=== PATIENT | male | born 1990 | race Caucasian/White ===

== ENCOUNTER 2016-08-06 17:47 | Emergency (ER) | payer OTHER, BC ==
--- NOTE | 2016-08-06 18:28 | EDM.PDOC ---
ED HPI GENERAL MEDICAL PROBLEM - General Time Seen by Provider: 08/06/16 19:23 Source of Information: Reports: Patient - History of Present Illness INITIAL COMMENTS - FREE TEXT/NARRATIVE: 25 y.o.w.m. came to the ed after he injured his r foot at work at 2 am with limted ROM, pain at R midfoot, denies any other injuries or any other medical issues. Pt refused pain meds. Onset: Today Onset Date: 08/06/16 Onset Time: 06:00 Duration: Minutes: Location: Reports: Lower Extremity, Right Quality: Reports: Dull Severity: Mild Improves with: Reports: Immobilization Worsens with: Reports: Movement Context: Reports: Trauma (at work) Associated Symptoms: Reports: No Other Symptoms - Related Data Allergies Allergy/AdvReac Type Severity Reaction Status Date / Time bee venom protein (honey bee) Allergy Anaphylactic Verified 08/06/16 19:22 Shock Penicillins Allergy Rash Verified 08/06/16 19:21 Home Meds: Home Meds Ibuprofen [Motrin] 600 mg PO TID PRN #30 tab 08/06/16 [Rx] Review of Systems - Review of Systems Review Of Systems: See Below Constitutional: Reports: No Symptoms Eyes: Reports: No Symptoms Ears: Reports: No Symptoms Nose: Reports: No Symptoms Mouth/Throat: Reports: No Symptoms Respiratory: Reports: No Symptoms Cardiovascular: Reports: No Symptoms GI/Abdominal: Reports: No Symptoms Genitourinary: Reports: No Symptoms Musculoskeletal: Reports: Foot Pain Skin: Reports: No Symptoms Neurological: Reports: No Symptoms Psychiatric: Reports: No Symptoms Trauma Exam - Physical Exam Exam: See Below Exam Limited By: No Limitations General Appearance: Reports: Alert, WD/WN, Mild Distress Head: Reports: Atraumatic, Normocephalic Eyes: Bilateral Eye: Normal Inspection Ears: Reports: Normal External Exam, Normal Canal Nose: Reports: Normal Inspection, Normal Mucousa Throat/Mouth: Reports: Normal Inspection, Normal Lips, Normal Teeth, Normal Gums Neck: Reports: Non-Tender, Full Range of Motion, Normal Alignment Respiratory Exam: Reports: No Respiratory Distress, Lungs Clear, Normal Breath Sounds, No Accessory Muscle Use, Chest Non-Tender Cardiovascular: Reports: Normal Peripheral Pulses, Regular Rate, Rhythm, No Edema, No Gallop, No JVD, No Murmur GI/Abdominal: Reports: Normal Bowel Sounds, Soft, Non-Tender, No Organomegaly (Male) Exam: Deferred Rectal (Males) Exam: Deferred Back: Reports: Full Range of Motion, Normal Inspection, Non-Tender Extremities: Reports: Tenderness (r posterior foot) 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 came to the ed after he injured his r foot at work at 2 am with limted ROM, pain at R midfoot, denies any other injuries or any other medical issues. Pt refused pain meds. Pt refused drug screen PE: R foot tenderness,swelling Imaging: R foot: NAD, official report is pending Impression: T foot sprain, work related Tx: ICE, KUSH wrap, crutches, pt refused pain meds. Plan: D/C with instructions Last Recorded V/S: Last Vital Signs Temp 37.1 C 08/06/16 19:23 Pulse 90 08/06/16 19:23 Resp 18 08/06/16 19:23 BP 121/82 08/06/16 19:23 Pulse Ox Departure - Departure Time of Disposition: 09:00 Disposition: Home, Self-Care 01 Clinical Impression: Right foot sprain Qualifiers: Encounter type: initial encounter Qualified Code(s): S93.601A - Unspecified sprain of right foot, initial encounter - Discharge Information Prescriptions: Ibuprofen [Motrin] 600 mg PO TID PRN #30 tab PRN Reason: pain swelling Instructions: Foot Sprain Referrals: PCP,None [Primary Care Provider] - Forms: ED Department Discharge Additional Instructions: ICE, REST, elevation, use crutches, wear weight as tolerated, please f/u with your doctor in next 3 days, please come back if your symptoms get worse acutely. Back to work in 3 days after seen and evaluated by your PMD. ED HPI Trauma - General Stated Complaint: RT FOOT INJURY Time Seen by Provider: 08/06/16 17:47 Source: Reports: Patient History Limitations: Reports: No Limitations - History of Present Illness INITIAL COMMENTS - FREE TEXT/NARRATIVE: 25 y.o.w.m. came to the ed after he injured his r foot at work at 2 am with limted ROM, pain at R midfoot, denies any other injuries or any other medical issues. Symptom Onset Date: 08/06/16 Symptom Onset Time: 02:00 Occurred When: this morning Occurred Where: work Method of Injury: direct blow Severity: Moderate Pain/Injury Location: Reports: lower extremity, right Consciousness: Reports: no loss of consciousness Associated Symptoms: Reports: denies other symptoms Allergies/ADRs: Allergies bee venom protein (honey bee) Allergy (Verified 08/06/16 19:22) Anaphylactic Shock Penicillins Allergy (Verified 08/06/16 19:21) Rash Home Medications: Ambulatory Orders Ibuprofen [Motrin] 600 mg PO TID PRN #30 tab 08/06/16 Departure - Departure Time of Disposition: 19:12 Disposition: Home, Self-Care 01 Preliminary Cause of *Q: Other_Special Instruction Condition: good Clinical Impression: Right foot sprain Qualifiers: Encounter type: initial encounter Qualified Code(s): S93.601A - Unspecified sprain of right foot, initial encounter Prescriptions: Ibuprofen [Motrin] 600 mg PO TID PRN #30 tab PRN Reason: pain swelling Instructions: Foot Sprain Referrals: PCP,None [Primary Care Provider] - Forms: ED Department Discharge Additional Instructions: ICE, REST, elevation, use crutches, wear weight as tolerated, please f/u with your doctor in next 3 days, please come back if your symptoms get worse acutely. Back to work in 3 days after seen and evaluated by your PMD.
[2016-08-06 19:29] VITALS: BP 121/82
--- NOTE | 2016-08-07 13:04 | CR ---
INDICATION: Trauma, pain top of foot in the mid line. RIGHT FOOT: Three views of the right foot revealed tiny posterior and plantar calcaneal spurs. These are probably not of significant degree. No fracture or dislocation was identified. No significant appearing bone or joint abnormality was seen. IMPRESSION: No significant bone or joint abnormality. MTDD
== END 2016-08-06 19:40 | disposition home or self-care (01) ==
LOC: FB.ED 17:47
DX: S93.601A Unspecified sprain of right foot, initial encounter (principal); W20.8XXA Other cause of strike by thrown, projected or falling object, initial encounter; Y99.0 Civilian activity done for income or pay
CPT/HCPCS: 73630-RT; 99283

== ENCOUNTER 2016-12-27 14:23 | Emergency (ER) | payer BC, OTHER ==
[2016-12-27] MEDS ORDERED: Tetracaine HCl/PF 0.5% 4 ML Bottle EYELF ONE (14:37)
--- NOTE | 2016-12-27 14:55 | EDM.PDOC ---
ED HPI GENERAL MEDICAL PROBLEM - General Chief Complaint: Eye Problems Stated Complaint: LEFT EYE Time Seen by Provider: 12/27/16 14:35 Source of Information: Reports: Patient, Other (employee) History Limitations: Reports: Physical Impairment - History of Present Illness INITIAL COMMENTS - FREE TEXT/NARRATIVE: 26 year old w aida came to the ed a few hours after a nitric acid based solution went into his left eye while unloading metal sheets, covered with nitric acid solution. Pt had photophobia as he arrived here in the ed with his coworker. No other acute medical issue at this time. Onset: Today Onset Date: 12/27/16 Onset Time: 12:00 Duration: Hour(s): Location: Reports: Face Quality: Reports: Burning Severity: Moderate Improves with: Reports: Cold Therapy Worsens with: Reports: Movement Associated Symptoms: Reports: No Other Symptoms - Related Data Allergies Allergy/AdvReac Type Severity Reaction Status Date / Time bee venom protein (honey bee) Allergy Anaphylactic Verified 12/27/16 14:33 Shock Penicillins Allergy Rash Verified 12/27/16 14:33 Home Meds: Home Meds Ibuprofen [Motrin] 600 mg PO TID PRN #30 tab 08/06/16 [Rx] Past Medical History - Past Health History Medical/Surgical History: Denies Medical/Surgical History Social & Family History - Tobacco Use Smoking Status *Q: Former Smoker Used Tobacco, but Quit: Yes Month Tobacco Last Used: apr Second Hand Smoke Exposure: No - Caffeine Use Caffeine Use: Reports: Coffee, Soda - Recreational Drug Use Recreational Drug Use: No ED ROS GENERAL - Review of Systems Review Of Systems: See Below Constitutional: Reports: No Symptoms HEENT: Reports: Eye Pain (with photophobia) Respiratory: Reports: No Symptoms Cardiovascular: Reports: No Symptoms Endocrine: Reports: No Symptoms GI/Abdominal: Reports: No Symptoms : Reports: No Symptoms Musculoskeletal: Reports: No Symptoms Skin: Reports: No Symptoms Neurological: Reports: No Symptoms Psychiatric: Reports: No Symptoms Hematologic/Lymphatic: Reports: No Symptoms Immunologic: Reports: No Symptoms ED EXAM GENERAL W FULL EYE - Physical Exam Exam: See Below Exam Limited By: Physical Impairment General Appearance: Alert, WD/WN, Mild Distress Eye Exam: Left Eye: Conjunctival Injection Visual Acuity (R) 20/: 20 Visual Acuity (L) 20/: 30 With Correction: No Eyelids: Bilateral: Normal Appearance Conjunctiva & Sclera: Left: Conjunctival Edema Cornea Exam: Bilateral: Normal Appearance Extraocular Movements: Bilateral: Intact Pupillary Size: Bilateral: 3 mm Pupillary Reaction: Bilateral: Brisk Posterior Chamber: Bilateral: Normal Funduscopic Ears: Normal External Exam Nose: Normal Inspection Throat/Mouth: Normal Inspection Head: Atraumatic, Normocephalic Neck: Normal Inspection Respiratory/Chest: No Respiratory Distress Cardiovascular: Normal Peripheral Pulses, Regular Rate, Rhythm GI/Abdominal: Normal Bowel Sounds (Male) Exam: Deferred (Female) Exam: Deferred Rectal (Males) Exam: Deferred Rectal (Female) Exam: Deferred Back Exam: Normal Inspection Extremities: Normal Inspection Neurological: Alert, Oriented, CN II-XII Intact Psychiatric: Normal Affect Skin Exam: Warm Lymphatic: No Adenopathy Course - Vital Signs Text/Narrative:: 26 year old w m came to the ed a few hours after a nitric acid based solution went into his left eye while unloading metal sheets, covered with nitric acid solution. Pt had photophobia as he arrived here in the ed with his coworker. No other acute medical issue at this time. PE: Left sided chemical conjunctivitis Visual acuity: R 20/20 left eye 20/30 Consultation: Poison Control: Irrigate left eye,till pH 7.3 Impression: Chemical conjunctivitis left eye. Tx: Tetracaine, Irrigation of left eye till pH was 7.2 Reexam: Improved Plan: D/C with instructions Last Recorded V/S: Last Vital Signs Temp 36.7 C 12/27/16 15:50 Pulse 73 12/27/16 15:50 Resp 16 12/27/16 15:50 BP 124/80 12/27/16 15:50 Pulse Ox 100 12/27/16 15:50 - Orders/Labs/Meds Orders: Active Orders 24 hr Category Date Time Status Eye Irrigation [RC] ASDIRECTED Care 12/27/16 14:53 Active Visual Acuity [Vision Test] [RC] ASDIRECTED Care 12/27/16 14:53 Active Meds: Medications Discontinued Medications Generic Name Dose Route Start Last Admin Trade Name Freq PRN Reason Stop Dose Admin Sulfacetamide 2 ml 12/27/16 16:00 12/27/16 15:50 Bleph-10 Ophth Soln EYELF 12/27/16 16:01 2 ml ONETIME STA Administration Tetracaine HCl 1 ml 12/27/16 14:37 12/27/16 14:51 Tetracaine 0.5% Steri-Unit Reema EYELF 12/27/16 14:38 1 ml ASDIRECTED ONE Administration Departure - Departure Time of Disposition: 16:42 Disposition: Home, Self-Care 01 Condition: Good Clinical Impression: Chemical conjunctivitis of left eye - Discharge Information Instructions: Chemical Conjunctivitis, [id number] Referrals: PCP,None [Primary Care Provider] - Forms: ED Department Discharge Additional Instructions: Please f/u with your PMD in next 24 hours, Please apply Sulfactenamide solution 2 drops twice a day for 5 days, please come back if your symptoms worsen acutely - My Orders Last 24 Hours: My Active Orders 12/27/16 14:53 Eye Irrigation [RC] ASDIRECTED Visual Acuity [Vision Test] [RC] ASDIRECTED - Assessment/Plan Last 24 Hours: My Active Orders 12/27/16 14:53 Eye Irrigation [RC] ASDIRECTED Visual Acuity [Vision Test] [RC] ASDIRECTED
[2016-12-27] MEDS ORDERED: Sulfacetamide 10% Ophth Soln 15 ML Bottle EYELF STA (16:00)
[2016-12-27 16:04] VITALS: BP 124/80
== END 2016-12-27 15:50 | disposition home or self-care (01) ==
LOC: FB.ED 14:23
DX: T54.2X1A Toxic effect of corrosive acids and acid-like substances, accidental (unintentional), initial encounter (principal); H10.212 Acute toxic conjunctivitis, left eye; Z91.030 Bee allergy status; Z88.0 Allergy status to penicillin; Z87.891 Personal history of nicotine dependence
CPT/HCPCS: 99283; A9270

== ENCOUNTER 2020-06-01 00:04 | Emergency (ER) | payer BC, OTHER ==
[2020-06-01] MEDS ORDERED: Alum Hydroxide/Mag Hydroxide 15 ML, Lidocaine 2% 15 ML PO ONE ×2 (00:21)
[2020-06-01] MEDS ORDERED: Pantoprazole 40 MG Tab.CR PO ONE (01:03)
--- NOTE | 2020-06-01 01:07 | EDM.PDOC ---
ED HPI GENERAL MEDICAL PROBLEM - General Chief Complaint: Chest Pain Stated Complaint: CHEST PAIN Time Seen by Provider: 06/01/20 01:02 Source of Information: Reports: Patient History Limitations: Reports: No Limitations - History of Present Illness INITIAL COMMENTS - FREE TEXT/NARRATIVE: Presents with epigastric burning pain radiating to chest x 1.5 weeks. Pain exacerbated with food and laying flat. Minimal relief with Tums. Denies h/o CAD. Duration: Week(s): (1.5) Location: Reports: Chest, Abdomen Quality: Reports: Burning Severity: Moderate mid chest/upper epigastric Pain Score (Numeric/FACES): 4 - Related Data Allergies Allergy/AdvReac Type Severity Reaction Status Date / Time bee venom protein (honey bee) Allergy Anaphylactic Verified 10/31/17 07:50 Shock Penicillins Allergy Rash Verified 10/31/17 07:50 shellfish derived Allergy Swelling Verified 10/31/17 07:50 Home Meds: Home Meds Pantoprazole Sodium [Protonix] 40 mg PO DAILY #14 tablet. 06/01/20 [Rx] Past Medical History - Past Health History Medical/Surgical History: Denies Medical/Surgical History Social & Family History - Family History Family Medical History: No Pertinent Family History - Caffeine Use Caffeine Use: Reports: Coffee, Soda - Alcohol Use Days Per Week of Alcohol Use: 3 Number of Drinks Per Day: 2 Total Drinks Per Week: 6 - Recreational Drug Use Recreational Drug Use: No ED ROS GENERAL - Review of Systems Review Of Systems: Comprehensive ROS is negative, except as noted in HPI. ED EXAM, GENERAL - Physical Exam Exam: See Below Exam Limited By: No Limitations General Appearance: Alert, WD/WN, No Apparent Distress Throat/Mouth: No Airway Compromise Head: Atraumatic, Normocephalic Neck: Full Range of Motion Respiratory/Chest: No Respiratory Distress, Lungs Clear, Normal Breath Sounds Cardiovascular: Regular Rate, Rhythm, No Murmur GI/Abdominal: Soft, No Distention, Tender (mild epigastric) Extremities: Normal Range of Motion Neurological: Alert, Normal Cognition Psychiatric: Normal Affect, Normal Mood Skin Exam: Warm, Dry, Intact #1 Interpretation EKG Date: 06/01/20 Time: 00:07 Rhythm: NSR Rate (Beats/Min): 82 [place]: Normal P-Wave: Present QRS: Normal ST-T: Elevated (probable normal early repolarization pattern) QT: Normal Comparison: NA - No Prior EKG Course - Vital Signs Last Recorded V/S: Last Vital Signs Temp 36.7 C 06/01/20 00:04 Pulse 82 06/01/20 00:04 Resp 16 06/01/20 00:04 BP 151/82 H 06/01/20 00:04 Pulse Ox 98 06/01/20 00:04 - Orders/Labs/Meds Orders: Active Orders 24 hr Category Date Time Status EKG Documentation Completion [RC] ASDIRECTED Care 06/01/20 00:45 Active EKG 12 Lead [EK] Routine Ther 06/01/20 00:45 Ordered Labs: Laboratory Tests 06/01/20 06/01/20 06/01/20 Range/Units 00:25 00:25 00:25 WBC 10.6 H (3.2-10.1) x10-3/uL RBC 5.41 (3.90-5.90) x10(6)uL Hgb 14.8 (12.9-17.7) g/dL Hct 43.9 (38.3-50.1) % MCV 81.0 (80.8-98.7) fL MCH 27.3 (27.0-33.3) pg MCHC 33.7 (28.7-35.3) g/dL RDW 12.7 (12.4-15.0) % Plt Count 230 (117-477) x10(3)uL MPV 7.9 (6.7-11.0) fL Neut % (Auto) 76.0 H (40.3-71.8) % Lymph % (Auto) 15.2 L (15.8-45.3) % [place] % (Auto) 6.9 (5.5-15.2) % Eos % (Auto) 1.0 (0.1-6.8) % Baso % (Auto) 0.9 (0.3-3.8) % Neut # (Auto) 8.0 H (1.7-6.9) x10-3/uL Lymph # (Auto) 1.6 (0.5-4.5) x10-3/uL [place] # (Auto) 0.7 (0.0-1.2) x10-3/uL Eos # (Auto) 0.1 (0.0-0.6) x10-3/uL Baso # (Auto) 0.1 (0.0-0.3) x10-3/uL Sodium 140 (135-145) mmol/L Potassium 4.1 (3.5-5.3) mmol/L Chloride 101 (100-110) mmol/L Carbon Dioxide 31 (21-32) mmol/L BUN 18 (7-18) mg/dL Creatinine 1.0 (0.70-1.30) mg/dL Est Cr Clr Drug Dosing 114.34 mL/min Estimated GFR (MDRD) > 60 (>60) BUN/Creatinine Ratio 18.0 (9-20) Glucose 84 (80-116) mg/dL Calcium 10.5 H (8.6-10.2) mg/dL Total Bilirubin 0.4 (0.1-1.3) mg/dL AST 23 (5-25) IU/L ALT 45 H (12-36) U/L Alkaline Phosphatase 71 (56-112) IU/L Total Protein 7.7 (6.0-8.0) g/dL Albumin 4.2 (3.5-5.2) g/dL Globulin 3.5 g/dL Albumin/Globulin Ratio 1.2 Lipase 85 (73-393) U/L Meds: Medications Discontinued Medications Generic Name Dose Route Start Last Admin Trade Name Freq PRN Reason Stop Dose Admin Al Hydroxide/Mg Hydroxide 15 0 ml 06/01/20 00:21 06/01/20 00:25 ml/ Lidocaine HCl 15 ml PO 06/01/20 00:22 30 ml ONETIME ONE Administration - Re-Assessments/Exams Free Text/Narrative Re-Assessment/Exam: 06/01/20 01:09 Symptoms improved after GI cocktail Departure - Departure Time of Disposition: 01:09 Disposition: Home, Self-Care 01 Condition: Good Clinical Impression: Dyspepsia Prescriptions: Pantoprazole Sodium [Protonix] 40 mg PO DAILY #14 tablet.dr Instructions: Nonspecific Chest Pain, Adult, [id number], Heartburn, [id number] Referrals: Sarah Parker [employer]OR ENGINEER [Physician] - 3 Days Additional Instructions: Fill the prescription for Protonix at [facility] and take as directed. Avoid Aspirin and Ibuprofen. Avoid spicy and fatty foods, and alcohol. Follow up with your primary physician in 3-4 days. Return to the ER if symptoms worsen. Sepsis Event Note (ED) - Evaluation Sepsis Screening Result: No Definite Risk - Focused Exam Vital Signs: Vital Signs Temp Pulse Resp BP Pulse Ox 06/01/20 00:04 36.7 C 82 16 151/82 H 98 - My Orders Last 24 Hours: My Active Orders 06/01/20 00:45 EKG Documentation Completion [RC] ASDIRECTED EKG 12 Lead [EK] Routine - Assessment/Plan Last 24 Hours: My Active Orders 06/01/20 00:45 EKG Documentation Completion [RC] ASDIRECTED EKG 12 Lead [EK] Routine
[2020-06-01 02:07] VITALS: BP 136/79; PULSE 77
== END 2020-06-01 01:26 | disposition home or self-care (01) ==
LOC: FB.ED 00:04
DX: R10.13 Epigastric pain (principal); Z91.030 Bee allergy status; Z88.0 Allergy status to penicillin; Z91.013 Allergy to seafood
CPT/HCPCS: 36415; 80053; 83690; 85025; 93005; 99284-25; A9270-GY

== ENCOUNTER 2022-08-05 05:38 | Emergency (ER) | payer SELFPAY ==
[2022-08-05 05:58] VITALS: BP 160/86; PULSE 92
[2022-08-05] MEDS ORDERED: Diphtheria,Pertussis(Acell),Tetanus Vaccine 0.5 ML Syringe IM ONE (06:03)
== END 2022-08-05 06:29 | disposition home or self-care (01) ==
LOC: FB.ED 05:38
DX: S61.210A Laceration without foreign body of right index finger without damage to nail, initial encounter (principal); Z23 Encounter for immunization; Z91.030 Bee allergy status; Z88.0 Allergy status to penicillin; Z91.013 Allergy to seafood; W26.0XXA Contact with knife, initial encounter
CPT/HCPCS: 90471; 90715; 99282

== ENCOUNTER 2023-05-10 18:24 | Emergency (ER) | payer BC ==
[2023-05-10 18:37] VITALS: BP 132/80; PULSE 98
[2023-05-10] MEDS ORDERED: Ketorolac 30 MG/ML SDV IVPUSH ONE (19:16)
[2023-05-10] MEDS ORDERED: Dexamethasone 4 MG/ML SDV IVPUSH ONE (19:17)
[2023-05-10] MEDS ORDERED: Metoclopramide 10 MG/2 ML SDV IVPUSH ONE (19:17)
[2023-05-10] MEDS ORDERED: Dexamethasone 4 MG/ML SDV ONE (19:32)
[2023-05-10] MEDS: Dexamethasone 4 MG/ML SDV IM ONE (19:40)
[2023-05-10] MEDS: Ketorolac 30 MG/ML SDV IM ONE (19:41)
[2023-05-10] MEDS: Acetaminophen 325 MG Tab PO ONE (19:42)
[2023-05-10] MEDS: Metoclopramide 10 MG/2 ML SDV IM ONE (19:43)
== END 2023-05-10 20:40 | disposition home or self-care (01) ==
LOC: FB.ED 18:24
DX: M62.830 Muscle spasm of back (principal); Z88.0 Allergy status to penicillin; Z91.013 Allergy to seafood; Z91.030 Bee allergy status; Z87.891 Personal history of nicotine dependence
CPT/HCPCS: 96372; 99283; A9270-GY; J1100; J1885; J2765